=== PATIENT | female | born 1950 | race Two or more races ===

== ENCOUNTER 2023-06-13 14:32 | Inpatient (IN) | payer OTHER ==
[~2023-06-13] VITALS: Ht 160 cm; Wt 63.5 kg
[2023-06-13] MEDS ORDERED: PROTONIX40 M1 PO (15:19)
[2023-06-13] MEDS ORDERED: CANDESARTAN CIL16 MG PO (15:19)
[2023-06-13] MEDS ORDERED: SIMVASTATIN80 MG PO (15:20)
[2023-06-13] MEDS ORDERED: SYNTHROID75 MCG PO (15:20)
--- NOTE | 2023-06-13 15:23 | NUR ---
PTE ALERTA Y ORIENTADA X3 BAJO ANESTESIA CON FAMILIAR QUIEN REFIERE TENER [facility] RECTAL YARITZA REFERIDO MEDICO EL CUAL PRESENTO. SE MIDEN SV Y SE UBICA.
[2023-06-13] MEDS ORDERED: 0.9 % SODIUM CHLORIDE 1,000 ML IV STA (16:11)
[2023-06-13 16:29] LABS: HEMATOCRIT 46.6 % (36.0-45.00); HEMOGLOBIN 15.7 g/dL (12.0-15.00); MEAN CELL VOLUME 88.5 fL (80.00-100.00); MEAN CORPUSCULAR HEMOGLOBIN 29.9 pg (27.00-32.0); MEAN CORPUSCULAR HGB CONC 33.7 g/dl (32.0-36.0); PLATELET COUNT 152 K/uL (150-450); RED BLOOD COUNT 5.27 M/uL (4.00-6.00); RED CELL DISTRIBUTION WIDTH 14.2 % (11.5-14.5)
--- NOTE | 2023-06-13 16:43 | NUR ---
SE EDUCA PACIENTE SOBRE EL [place] MEDICO Y ESTA REFIERE ENTENDER. SE CANALIZA Y SE ADMINITRAN MEDICAMENTOS YARITZA ORDEN MEDICA. SE HUDSON MUESTRAS DE [facility]ATOR[facility] Y SE ENVIAN. SE ENTREGA ENVASE DE U/A. PENDIENTE A CT SCAN
[2023-06-13 16:55] LABS: ALBUMIN 3.9 gm/dL (3.4-5.0); BILIRUBIN TOTAL 1.4 mg/dL (0.3-1.2); BILIRUBIN,CONJUGATED 0.28 mg/dL (0.0-0.2); BILIRUBIN,UNCONJUGATED 1.12 mg/dL (0.0-0.6); CALCIUM 9.7 mg/dL (8.5-10.1); CREATININE SERUM 1.04 mg/dL (0.55-1.02); GFR 52.09; POTASSIUM 3.78 mEq/L (3.5-5.1); TOTAL PROTEIN 8.1 gm/dL (6.4-8.2)
[2023-06-13 17:08] LABS: INR 1.04; PROTHROMBIN TIME 10.9 SECONDS (9.0-11.5)
[2023-06-13] MEDS ORDERED: MORPHINE SULFATE 4 MG/ML CARTRIDGE IV ONE (17:30)
[2023-06-13] MEDS ORDERED: PIPERACILLIN/TAZOBACTAM SODIUM 3.375 GM in 0.9 % SODIUM CHLORIDE 100 ML IV SCH (18:00)
[2023-06-13] MEDS ORDERED: FAMOTIDINE/PF 20 MG/2 ML VIAL IV SCH (18:38)
[2023-06-13] MEDS ORDERED: RINGERS SOLUTION,LACTATED 1,000 ML IV SCH (18:45)
[2023-06-13] MEDS ORDERED: ONDANSETRON HCL 2 MG/ML VIAL IV PRN (18:45)
[2023-06-13] MEDS ORDERED: ENALAPRILAT DIHYDRATE 1.25 MG/ML VIAL IV PRN (19:00)
[2023-06-13] MEDS ORDERED: AA 4.25%/CAL/LYTES/DEXT 5% 1,000 ML PERIFERAL SCH (19:15)
[2023-06-13] MEDS ORDERED: MORPHINE SULFATE 4 MG/ML VIAL IV PRN (19:15)
[2023-06-13] MEDS ORDERED: FAMOTIDINE/PF 20 MG/10 ML SYRINGE IV SCH (21:00)
[2023-06-13 23:00] LABS: URINE APPEARANCE Clear; URINE BILIRRUBIN Negative (NEGATIVE); URINE BLOOD Trace; URINE COLOR Yellow; URINE GLUCOSE Negative (NEGATIVE); URINE LEUKOCYTE Negative; URINE NITRATE Negative; URINE PROTEIN Negative (NEGATIVE); URINE UROBILINOGEN 0.2 E.U./dl
[2023-06-13 23:03] LABS: URINE BACTERIA 22.6 uL (0.0-1933); URINE EPITHELIAL CELLS 4.9 uL (0.0-38.8); URINE RBC 4.5 uL (0.0-20.8); URINE WBC 2.6 uL (0.0-23.2)
[2023-06-14] MEDS ORDERED: PIPERACILLIN/TAZOBACTAM SODIUM 3.375 GM VIAL IV SCH (01:00)
[2023-06-14] MEDS ORDERED: LEVOTHYROXINE SODIUM 50 MCG TABLET PO SCH (06:00)
[2023-06-14 07:13] LABS: HEMATOCRIT 40.5 % (36.0-45.00); HEMOGLOBIN 13.8 g/dL (12.0-15.00); MEAN CORPUSCULAR HEMOGLOBIN 29.2 pg (27.00-32.0); RED BLOOD COUNT 4.72 M/uL (4.00-6.00); RED CELL DISTRIBUTION WIDTH 14.4 % (11.5-14.5)
[2023-06-14 07:19] LABS: PLATELET COUNT 120 K/uL (150-450)
[2023-06-14 07:36] LABS: ALBUMIN 3.2 gm/dL (3.4-5.0); BILIRUBIN TOTAL 1.96 mg/dL (0.3-1.2); CALCIUM 9.1 mg/dL (8.5-10.1); CREATININE SERUM 0.92 mg/dL (0.55-1.02); GFR 60.01; POTASSIUM 3.92 mEq/L (3.5-5.1); TOTAL PROTEIN 6.2 gm/dL (6.4-8.2)
[2023-06-14 07:47] LABS: ALBUMIN 3.1 gm/dL (3.4-5.0); BILIRUBIN TOTAL 1.9 mg/dL (0.3-1.2); BILIRUBIN,CONJUGATED 0.37 mg/dL (0.0-0.2); BILIRUBIN,UNCONJUGATED 1.53 mg/dL (0.0-0.6); C-REACTIVE PROTEIN 2.11 MG/DL (0.00-0.29); MAGNESIUM 2.1 mg/dL (1.8-2.4); PHOSPHOROUS 3.4 mg/dL (2.5-4.9); TOTAL PROTEIN 6.5 gm/dL (6.4-8.2); TSH 0.639 uIU/mL (0.358-3.74)
[2023-06-14 07:55] LABS: ERYTHROCYTE SEDIMENTATION RATE 12 mm/hr
[2023-06-14] MEDS ORDERED: CANDESARTAN CILEXETIL 16 MG TABLET PO SCH (09:00)
[2023-06-14] MEDS ORDERED: AA 4.25%/CAL/LYTES/DEXT 5% 1,000 ML PERIFERAL SCH (17:00)
[2023-06-14] MEDS ORDERED: AA 4.25%/CALCIUM/LYTES/DEX 10% 1,000 ML CENTRAL SCH (17:00)
[2023-06-14] MEDS ORDERED: ENOXAPARIN SODIUM 40 MG/0.4 ML SYRINGE SUBCUTANEO SCH (17:00)
[2023-06-15 07:18] LABS: HEMATOCRIT 40.3 % (36.0-45.00); HEMOGLOBIN 13.6 g/dL (12.0-15.00); MEAN CELL VOLUME 88.3 fL (80.00-100.00); MEAN CORPUSCULAR HEMOGLOBIN 29.8 pg (27.00-32.0); MEAN CORPUSCULAR HGB CONC 33.7 g/dl (32.0-36.0); PLATELET COUNT 121 K/uL (150-450); RED BLOOD COUNT 4.56 M/uL (4.00-6.00); RED CELL DISTRIBUTION WIDTH 13.7 % (11.5-14.5)
[2023-06-15 07:46] LABS: ALBUMIN 2.9 gm/dL (3.4-5.0); CALCIUM 8.5 mg/dL (8.5-10.1); CREATININE SERUM 0.85 mg/dL (0.55-1.02); GFR 65.74; PHOSPHOROUS 2.4 mg/dL (2.5-4.9); POTASSIUM 3.9 mEq/L (3.5-5.1)
[2023-06-15] MEDS ORDERED: CLOTRIMAZOLE 10 MG TROCHE MM SCH (10:46)
[2023-06-17] MEDS ORDERED: LACTOBACILLUS ACIDOPHILUS 1 CAP CAP PO SCH (10:47)
[2023-06-19 06:21] LABS: HEMATOCRIT 37.2 % (36.0-45.00); HEMOGLOBIN 12.8 g/dL (12.0-15.00); MEAN CELL VOLUME 87.1 fL (80.00-100.00); MEAN CORPUSCULAR HEMOGLOBIN 30.1 pg (27.00-32.0); MEAN CORPUSCULAR HGB CONC 34.5 g/dl (32.0-36.0); RED BLOOD COUNT 4.27 M/uL (4.00-6.00); RED CELL DISTRIBUTION WIDTH 13.9 % (11.5-14.5)
[2023-06-19 06:36] LABS: PLATELET COUNT 102 K/uL (150-450)
[2023-06-19 06:42] LABS: CALCIUM 9.2 mg/dL (8.5-10.1); CREATININE SERUM 0.84 mg/dL (0.55-1.02); GFR 66.65; POTASSIUM 4.44 mEq/L (3.5-5.1)
[2023-06-19 06:44] LABS: INR 1.06; PARTIAL THROMBOPLASTIN TIME 29.3 SECONDS (22.0-34.0); PROTHROMBIN TIME 11.1 SECONDS (9.0-11.5)
[2023-06-19 06:46] LABS: ALBUMIN 2.8 gm/dL (3.4-5.0); BILIRUBIN TOTAL 0.66 mg/dL (0.3-1.2); BILIRUBIN,CONJUGATED 0.14 mg/dL (0.0-0.2); BILIRUBIN,UNCONJUGATED 0.52 mg/dL (0.0-0.6); CHOL HDL RATIO 3.6 (0-5.0); MAGNESIUM 2.2 mg/dL (1.8-2.4); TOTAL PROTEIN 5.9 gm/dL (6.4-8.2)
[2023-06-19] MEDS ORDERED: PIPERACILLIN/TAZOBACTAM SODIUM 3.375 GM VIAL IV ONE (07:56)
[2023-06-19 08:35] LABS: UREA CLEARANCE 30.1 ML/MIN
[2023-06-22 05:12] LABS: HEMATOCRIT 38.4 % (36.0-45.00); HEMOGLOBIN 13.1 g/dL (12.0-15.00); MEAN CELL VOLUME 86.7 fL (80.00-100.00); MEAN CORPUSCULAR HEMOGLOBIN 29.7 pg (27.00-32.0); MEAN CORPUSCULAR HGB CONC 34.3 g/dl (32.0-36.0); RED BLOOD COUNT 4.42 M/uL (4.00-6.00); RED CELL DISTRIBUTION WIDTH 14.1 % (11.5-14.5)
[2023-06-22 05:29] LABS: PLATELET COUNT 109 K/uL (150-450)
[2023-06-22 05:35] LABS: ANION GAP 9 (10.0-20.0); BLOOD UREA NITROGEN 21 mg/dL (7-18); BUN CREA RATIO 24 (7.0-25.0); CALCIUM 9.4 mg/dL (8.5-10.1); CARBON DIOXIDE 29 mEq/L (21-32); CHLORIDE 108 mmol/L (98-107); CREATININE SERUM 0.86 mg/dL (0.55-1.02); GFR 64.86; GLUCOSE FASTING 96 mg/dL (65-100); OSMOLALITY SERUM 286 MOSM/KG (275-295); PHOSPHOROUS 3.9 mg/dL (2.5-4.9); POTASSIUM 4.33 mEq/L (3.5-5.1); SODIUM 142 mmol/L (136-145)
[2023-06-22 05:36] LABS: C-REACTIVE PROTEIN < 0.29 MG/DL (0.00-0.29)
[2023-06-22 08:37] LABS: MANUAL PLATELET COUNT 222
[2023-06-22] MEDS ORDERED: DIATRIZOATE MEGLUMINE, SODIUM 30 ML BOTTLE PO ONE (09:15)
[2023-06-24] MEDS ORDERED: PEPCID AC20 MG PO (12:22)
[2023-06-24] MEDS ORDERED: METRONIDAZOLE500 MG PO (12:22)
[2023-06-24] MEDS ORDERED: LEVSIN/SL0.125 MG SL (12:22)
[2023-06-24] MEDS ORDERED: LEVOFLOXACIN500 MG PO (12:22)
[2023-06-24] MEDS ORDERED: INTESTINEX680 M1 PO (12:23)
== END 2023-06-24 15:23 | disposition home or self-care (01) | DRG 395 ==
LOC: EDBD 14:32 → ER 14:32 → SURH 19:05
PROVIDERS: General Practice; Internal Medicine; Internal Medicine Geriatric Medicine; ADMIT Surgery; ATTEND Surgery
PROC: BW21YZZ Computerized Tomography (CT Scan) of Abdomen and Pelvis using Other Contrast (ICD-10-PCS; principal; 2023-06-13)
PROC: 02HV33Z Insertion of Infusion Device into Superior Vena Cava, Percutaneous Approach (ICD-10-PCS; 2023-06-14)
PROC: BW21YZZ Computerized Tomography (CT Scan) of Abdomen and Pelvis using Other Contrast (ICD-10-PCS; 2023-06-16)
PROC: BW21ZZZ Computerized Tomography (CT Scan) of Abdomen and Pelvis (ICD-10-PCS; 2023-06-22)
DX: K63.1 Perforation of intestine (nontraumatic) (principal); E03.9 Hypothyroidism, unspecified; E80.6 Other disorders of bilirubin metabolism; I11.9 Hypertensive heart disease without heart failure; K66.9 Disorder of peritoneum, unspecified; E80.4 Gilbert syndrome; E78.00 Pure hypercholesterolemia, unspecified